=== PATIENT | female | born 1960 | race Two or more races ===

== ENCOUNTER → 2019-03-09 | Outpatient (CLI) | payer OTHER ==
--- NOTE | 2019-03-10 04:40 | XR ---
EXAMINATION TYPE: XR ankle complete LT DATE OF EXAM: 03/09/2019 COMPARISON: NONE HISTORY: 58-year-old female with slip and injury, lateral pain TECHNIQUE: 3 views FINDINGS: Circumferential soft tissue swelling especially laterally and anteriorly. Questionable tiny lucency a long the inferior margin of the posterior malleolus. Prominent beaking from the dorsal talar head/nec k region. Suspected tiny os trigonum. Otherwise, no acute fracture, subluxation, or dislocation is se en. IMPRESSION: 1. Circumferential soft tissue swelling, especially anteriorly and laterally. 2. Subtle lucency along the inferior aspect of the posterior malleolus. A small avulsion fracture is difficult to exclude at this time. Consider CT if indicated.
== END | disposition home or self-care (01) ==
LOC: RADXRYALE 14:49
PROVIDERS: ATTEND Internal Medicine
DX: M79.89 Other specified soft tissue disorders (principal); R93.7 Abnormal findings on diagnostic imaging of other parts of musculoskeletal system